=== PATIENT | female | born 1990 | race Hispanic/Latino ===

== ENCOUNTER 2017-10-08 15:51 | Emergency (ER) | payer OTHER ==
[2017-10-08 16:24] VITALS: BP 113/77; PULSE 85; RESP 18; TEMP 98.9; O2SAT 98
[2017-10-08] MEDS ORDERED: Oxycodone/Acetaminophen 5/325 mg Tab PO STA (16:28)
[2017-10-08] MEDS ORDERED: Oxycodone/Acetaminophen 5/325 mg Tab ONE (16:30)
--- NOTE | 2017-10-08 16:37 | ED PDOC ---
Lower Extremity Pain/Injury Time Seen by Provider: 10/08/17 16:25 Chief Complaint (Nursing): Lower Extremity Problem/Injury Chief Complaint (Provider): Knee pain History Per: Patient Additional Complaint(s): Pt is a 27 yo female, no PMH, presents to ED with complaints of left knee pain, pt [place] the [place] park [place] two dogs collided into her and made her fall to the ground, pt states she heard a pop and cannot bear any weight, pain has worsened over the past hour. No analgesics taken thus far. Past Medical History Reviewed: Nursing Documentation, Vital Signs Vital Signs: Last Vital Signs Temp 98.9 F 10/08/17 16:21 Pulse 85 10/08/17 16:21 Resp 18 10/08/17 16:21 BP 113/77 10/08/17 16:21 Pulse Ox 98 10/08/17 16:21 - Medical History PMH: No Chronic Diseases - Surgical History Surgical History: No Surg Hx - Family History Family History: States: No Known Family Hx - Living Arrangements Living Arrangements: With Family - Social History Current smoker - smoking cessation education provided: No Alcohol: Social Drugs: Denies - Allergies Allergies/Adverse Reactions: Allergies Allergy/AdvReac Type Severity Reaction Status Date / Time No Known Allergies Allergy Verified 10/08/17 16:28 Review of Systems ROS Statement: Except As Marked, All Systems Reviewed And Found Negative Musculoskeletal: Positive for: Other (knee pain) Physical Exam - Reviewed Nursing Documentation Reviewed: Yes Vital Signs Reviewed: Yes - Physical Exam Appears: Positive for: Well, Non-toxic, No Acute Distress Head Exam: Positive for: ATRAUMATIC, NORMAL INSPECTION, NORMOCEPHALIC Skin: Positive for: Normal Color, Warm, DRY Eye Exam: Positive for: EOMI, Normal appearance, PERRL ENT: Positive for: Normal ENT Inspection Neck: Positive for: Normal, Painless ROM Cardiovascular/Chest: Positive for: Regular Rate, Rhythm Respiratory: Positive for: CNT, Normal Breath Sounds Gastrointestinal/Abdominal: Positive for: Normal Exam, Bowel Sounds, Soft Back: Positive for: Normal Inspection Extremity: Positive for: Tenderness (medial and lateral aspects of knee), Other (no ecchymosis, no effusion. limited extension due to pain). Negative for: Deformity, Swelling Neurologic/Psych: Positive for: Alert, Oriented - ECG O2 Sat by Pulse Oximetry: 98 Medical Decision Making Medical Decision Making: Pt medicated with Motrin and Percocet PO XR: (+) Avulsion fxr noted, as read by PA-C CT obtained CT FINDINGS: Bones/joints: Avulsion fracture medial aspect of proximal tibia. No dislocation. No significant joint effusion. Soft tissues: Mild stranding within anterior soft tissues. IMPRESSION: 1. Avulsion fracture. Pt placed in knee immobilizer and instructed in crutch walking by compressor service technician Ortho referral made, importance of follow up stressed Disposition - Clinical Impression Clinical Impression: Knee fracture - Patient ED Disposition Is Patient to be Admitted: No - Disposition Disposition: Routine/Home Disposition Time: 19:36 Condition: STABLE Forms: [facility] (Austrian)
[2017-10-08] MEDS ORDERED: Morphine 4 MG/ML VIAL IM ONE ×2 (17:44→19:03)
[2017-10-08] MEDS ORDERED: Morphine 4 MG/ML VIAL ONE ×2 (17:52→19:07)
--- NOTE | 2017-10-08 19:47 | RAD ---
PROCEDURE: Left Knee Radiographs. HISTORY: Pain. COMPARISON: None. FINDINGS: BONES: Likely chip or avulsion fracture medial segment of the medial tibial plateau with remainder the knee intact. No destructive bony lesion identified. JOINTS: Normal. No osteoarthritis. JOINT EFFUSION: None. OTHER FINDINGS: None. IMPRESSION: Likely chip or avulsion fracture medial tibial plateau. No subluxation, dislocation or other potential fracture identified.
--- NOTE | 2017-10-09 10:10 | CT ---
PROCEDURE: LEFT KNEE CT WITHOUT CONTRAST HISTORY: qustionable fxr noted on XR COMPARISON: Left knee radiographs also performed 12/18/2017. TECHNIQUE: A volumetric CT acquisition through the left knee was performed without intravenous contrast with reformatted datasets provided in sagittal axial and coronal planes as well surface rendered reformatted datasets. Intravenous contrast was not administered as per referring physician request. Radiation dose: Total exam DLP = 327.27 mGy-cm. This CT exam was performed using one or more of the following dose reduction techniques: Automated exposure control, adjustment of the mA and/or kV according to patient size, and/or use of iterative reconstruction technique. FINDINGS: A tiny chip or avulsion fracture related to the medial tibial plateau with remainder of the visualized tibia and fibula intact. The patella is intact. No subluxation or dislocation. Limited local soft tissue edema is seen medially related to the fracture noted above. No destructive bony lesion is identified. Popliteal fossa appears unremarkable no pattern to suggest suprapatellar bursitis and no prominent joint effusion is encountered. . IMPRESSION: A tiny chip or avulsion fracture is seen affecting the medial tibial plateau rim at its medial most extent. No additional fracture identified throughout. No subluxation or dislocation. Concordant preliminary report from [facility], 10/08/2017.
== END 2017-10-08 19:59 | disposition home or self-care (01) ==
LOC: H.ER 15:51
DX: S82.002A Unspecified fracture of left patella, initial encounter for closed fracture (principal); W19.XXXA Unspecified fall, initial encounter; Y92.830 Public park as the place of occurrence of the external cause
CPT/HCPCS: 29530; 73562; 73700; 81025; 96372; 99285; J2270; L1830